=== PATIENT | female | born 1995 | race Two or more races ===

== ENCOUNTER 2021-06-10 11:44 | Inpatient (IN) | payer OTHER ==
[~2021-06-10] VITALS: Ht 144.8 cm; Wt 78.9 kg
[2021-06-10] MEDS ORDERED: PRENATAL CAPLE1 EAC1 PO (12:57)
== END 2021-06-12 14:03 | disposition home or self-care (01) | DRG 807 ==
LOC: LDR 11:44 → OB/GYN 11:44
PROVIDERS: ADMIT Obstetrics & Gynecology; ATTEND Obstetrics & Gynecology
PROC: 10E0XZZ Delivery of Products of Conception, External Approach (ICD-10-PCS; principal; 2021-06-10)
PROC: 0HQ9XZZ Repair Perineum Skin, External Approach (ICD-10-PCS; 2021-06-10)
PROC: 10907ZC Drainage of Amniotic Fluid, Therapeutic from Products of Conception, Via Natural or Artificial Opening (ICD-10-PCS; 2021-06-10)
PROC: 4A1HXFZ Monitoring of Products of Conception, Cardiac Rhythm, External Approach (ICD-10-PCS; 2021-06-10)
DX: O70.0 First degree perineal laceration during delivery (principal); Z37.0 Single live birth; O24.420 Gestational diabetes mellitus in childbirth, diet controlled; Z3A.37 37 weeks gestation of pregnancy